=== PATIENT | female | born 1950 | race Hispanic/Latino ===

== ENCOUNTER 2016-12-12 20:26 | Emergency (ER) | payer MEDICARE ==
[2016-12-12] MEDS ORDERED: ONDANSETRON HCL/PF 2 MG/ML VIAL ONE (20:40)
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
--- OUTSIDE RECORDS SUMMARY | 2016-12-12 20:52 | XMS REPORT | Summary of Care ---
:1950 Author Organization [facility] Address [address] [place] [phone] Care Team Providers Name Role Phone Sherry Grant Primary Care Physician Encounter Date(s): 11/18/16 - 11/18/[address] [address] [facility] Discharge Disposition: 01 Discharged to Home or Self Care Attending Physician: DYLAN Negron Referring Physician: DYLAN Negron Vital Signs Most recent to oldest [Reference Range]: 1 Peripheral Pulse Rate [60-100 bpm] 98 bpm (11/18/16 9:27 AM) SpO2 [90-100 %] 96 %1 (11/18/16 9:27 AM) SpO2 Location Left hand (11/18/16 9:27 AM) Blood Pressure [90-130/60-90 mmHg] 108/64mmHg (11/18/16 9:27 AM) Mean Arterial Pressure, Cuff 79 mmHg (11/18/16 9:27 AM) Most recent to oldest [Reference Range]: 1 Height/Length Measured 164 cm (11/18/16 9:27 AM) Weight Dosing 67.4 kg (11/18/16 9:27 AM) Weight Measured 67.4 kg (11/18/16 9:27 AM) BSA Measured 1.74 m2 (11/18/16 9:27 AM) Body Mass Index Measured 25.06 kg/m2 (11/18/16 9:27 AM) 1Result Comment: room air Problem List Condition Effective Dates Status Health Status Informant acute pyelonephritis(Confirmed) Active Anxiety(Confirmed) Active BPPV (benign paroxysmal positional Active vertigo)(Confirmed) 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) Depression(Confirmed) Active Diabetes mellitus(Confirmed) Active DIABETES MELLITUS(Confirmed) Active Dizziness(Confirmed) Active GERD (gastroesophageal reflux Active disease)(Confirmed) Headache(Confirmed) Active Heartburn(Confirmed) Active Hyperlipidemia(Confirmed) Active Hypertension(Confirmed) Active CALCULUS OF KIDNEY(Confirmed) Active Lower back pain(Confirmed) Active Lumbar spondylosis(Confirmed) Active Lumbosacral spondylosis(Confirmed) Active Cervicalgia(Confirmed) Active Subdural hematoma(Confirmed) Active Allergies, Adverse Reactions, Alerts No Known Medication Allergies Medications ALPRAZolam 0.25 mg oral tablet 1 tab(s), Oral, TID, 0 Refill(s), Start Date: 07/18/14 14:11:00 CDT Start Date: 07/18/14 Status: Orderedcephalexin 500 mg oral tablet 1 tab(s), Oral, BID, # 14 tab(s), 0 Refill(s), Start Date: 10/20/15 10:43:00 [employer] SERVICES WORKER , Pharmacy: [place], [place] Start Date: 10/20/15 Stop Date: 11/29/15 Status: CompletedCipro 500 mg oral tablet tab(s), Oral, q12hr interval, 0 Refill(s), Start Date: 07/18/14 15:42:00 CDT Start Date: 07/18/14 Stop Date: 05/23/15 Status: Completedciprofloxacin 500 mg oral tablet 1 tab(s), Oral, q12hr interval, # 28 tab(s), 0 Refill(s), Start Date: 07/18/14 20:24:00 CDT Start Date: 07/18/14 Stop Date: 05/23/15 Status: Completedcitalopram 20 mg oral tablet 1 tab(s), Oral, Daily, 0 Refill(s), Start Date: 07/18/14 14:11:00 CDT Special Instructions: per patient Start Date: 07/18/14 Stop Date: 05/30/16 Status: DiscontinuedDitropan 5 mg oral tablet 1 tab(s), Oral, q12hr, PRN bladder spasm, cramping, severe stent pain, # 30 tab( s), 1 Refill(s), Start Date: 07/18/14 20:25:00 CDT Start Date: 07/18/14 Stop Date: 05/23/15 Status: DiscontinuedFlexeril 5 mg oral tablet 1 tab(s), Oral, BID, PRN as needed for muscle spasm, # 14 tab(s), 0 Refill(s), Start Date: 12/11/15 14:24:00 CDT, Pharmacy: [place], [place] Start Date: 12/11/15 Stop Date: 05/30/16 Status: CompletedglipiZIDE 5 mg oral tablet 1 tab(s), Oral, Daily, # 30 tab(s), 6 Refill(s), Start Date: 06/22/15 11:35:00 CDT, Pharmacy: [place], [place] Start Date: 06/22/15 Stop Date: 03/01/16 Status: CompletedglipiZIDE 5 mg oral tablet 1 tab(s), Oral, Daily, # 90 tab(s), 1 Refill(s), Start Date: 03/01/16 10:26:30 CDT, Pharmacy: [place], [place] Start Date: 03/01/16 Status: OrderedglipiZIDE 5 mg oral tablet tab(s), Oral, Daily, 0 Refill(s), Start Date: 07/18/14 14:10:00 CDT Start Date: 07/18/14 Stop Date: 06/22/15 Status: DiscontinuedGoLYTELY oral powder for reconstitution See Instructions, 240 mL Oral Daily, # 4,000 mL, 0 Refill(s), Start Date: 12:43:00 NUTRITION SERVICES WORKER, Pharmacy: [place], [place] Special Instructions: 240 mL Oral Daily Start Date: 08/26/16 Stop Date: 09/30/16 Status: CompletedHYDROcodone-acetaminophen 5 mg-325 mg oral tablet tab(s), Oral, q6hr interval, 0 Refill(s), Start Date: 07/18/14 15:42:00 CDT Start Date: 07/18/14 Stop Date: 05/23/15 Status: DiscontinuedlamoTRIgine 150 mg oral tablet 1 tab(s), Oral, Daily, # 60 tab(s), 0 Refill(s), Start Date: 01/25/16 9:26:00 CDT Start Date: 01/25/16 Status: OrderedLexapro 20 mg oral tablet 1.5 tab, Oral, Daily, # 30 tab(s), 0 Refill(s), Start Date: 05/30/16 16:16:00 CDT Start Date: 05/30/16 Status: Orderedlisinopril 10 mg oral tablet See Instructions, TAKE ONE TABLET BY MOUTH DAILY, tab(s), 3 Refill(s), # 90, e[facility] : [place], [place] Special Instructions: TAKE ONE TABLET BY MOUTH DAILY Start Date: 08/01/16 Stop Date: 08/12/16 Status: Completedlisinopril 10 mg oral tablet 1 tab(s), Oral, Daily, # 90 tab(s), 1 Refill(s), Start Date: 01/09/16 15:21:00 CDT, Pharmacy: [place], [place] Start Date: 01/09/16 Stop Date: 08/01/16 Status: Completedlisinopril 10 mg oral tablet See Instructions, TAKE ONE TABLET BY MOUTH DAILY, # 90 tab(s), 3 Refill(s), Start Date: 08/12/16 16:25:56 NUTRITION SERVICES WORKER, Pharmacy: [place], [place] Special Instructions: TAKE ONE TABLET BY MOUTH DAILY Start Date: 08/12/16 Status: Orderedlisinopril 10 mg oral tablet tab(s), Oral, Daily, 0 Refill(s), Start Date: 07/18/14 14:10:00 CDT Start Date: 07/18/14 Stop Date: 01/09/16 Status: DiscontinuedmetFORMIN 500 mg oral tablet 1 tab(s), Oral, BID, # 60 tab(s), 6 Refill(s), Start Date: 11/29/15 13:32:00 NUTRITION SERVICES WORKER , Pharmacy: [place], [place] Start Date: 11/29/15 Stop Date: 06/26/16 Status: OrderedmetFORMIN 500 mg oral tablet tab(s), Oral, BID, 0 Refill(s), Start Date: 07/18/14 14:10:00 CDT Start Date: 07/18/14 Stop Date: 11/29/15 Status: DiscontinuedMiraLax oral powder for reconstitution 17 gm=, Oral, Daily, # 527 gm, 0 Refill(s), Start Date: 07/18/14 20:26:00 CDT Start Date: 07/18/14 Stop Date: 12/11/15 Status: Discontinuednitrofurantoin macrocrystals 100 mg oral capsule 1 cap(s), Oral, Daily, # 30 cap(s), 11 Refill(s), Start Date: 07/25/14 10:00:00 NUTRITION SERVICES WORKER, Pharmacy: [facility] Start Date: 07/25/14 Stop Date: 05/23/15 Status: Discontinuedomeprazole 20 mg oral delayed release capsule 1 cap(s), Oral, Daily, # 90 cap(s), 0 Refill(s), Start Date: 10/21/16 9:25:17 NUTRITION SERVICES WORKER, Pharmacy: [place], [place] Start Date: 10/21/16 Status: Orderedomeprazole 20 mg oral delayed release capsule 1 cap(s), Oral, Daily, # 90 cap(s), 0 Refill(s), Start Date: 03/01/16 10:26:55 CDT, Pharmacy: [place], [place] Start Date: 03/01/16 Stop Date: 10/21/16 Status: Completedomeprazole 20 mg oral delayed release capsule 1 cap(s), Oral, Daily, # 90 cap(s), 1 Refill(s), Start Date: 09/12/15 10:29:00 NUTRITION SERVICES WORKER, Pharmacy: [place], [place] Start Date: 09/12/15 Stop Date: 03/01/16 Status: CompletedPercocet 5/325 oral tablet 1 tab(s), Oral, q6hr interval, # 30 tab(s), 0 Refill(s), Start Date: 07/18/14 20 :25:00 CDT Start Date: 07/18/14 Stop Date: 05/23/15 Status: DiscontinuedQUEtiapine 50 mg oral tablet 1 tab(s), Oral, HS, 0 Refill(s), Start Date: 07/18/14 14:11:00 CDT Start Date: 07/18/14 Status: Orderedsimvastatin 10 mg oral tablet 1 tab(s), Oral, HS, # 90 tab(s), 1 Refill(s), Start Date: 02/20/16 9:54:00 CDT, Pharmacy: [place], [place] Start Date: 02/20/16 Stop Date: 08/12/16 Status: Completedsimvastatin 10 mg oral tablet 1 tab(s), Oral, HS, # 90 tab(s), 1 Refill(s), Start Date: 08/12/16 16:25:43 NUTRITION SERVICES WORKER , Pharmacy: [place], [place] Start Date: 08/12/16 Status: Orderedsimvastatin 10 mg oral tablet tab(s), Oral, HS, 0 Refill(s), Start Date: 07/18/14 14:10:00 CDT Start Date: 07/18/14 Stop Date: 02/20/16 Status: DiscontinuedSuprep Bowel Prep Kit oral liquid 1 bottles, Oral, BID, Mix 1 btl to 16oz water and drink. Next morning; repeat use second btl. Complete at least 1 hr before colonscopy., # 1 kit(s), 0 Refill (s), Start Date: 10/25/16 10:10:05 NUTRITION SERVICES WORKER, Pharmacy: [place], [place] Special Instructions: Mix 1 btl to 16oz water and drink. Next morning; repeat use second btl. Complete at least 1 hr before colonscopy. Start Date: 10/25/16 Stop Date: 12/19/16 Status: OrderedSuprep Bowel Prep Kit oral liquid 1 bottles, Oral, BID, Mix 1 btl to 16oz water and drink. Next morning; repeat use second btl. Complete at least 1 hr before colonscopy., # 1 kit(s), 0 Refill (s), Start Date: 10/21/16 13:39:00 NUTRITION SERVICES WORKER, Pharmacy: [place], [place] Special Instructions: Mix 1 btl to 16oz water and drink. Next morning; repeat use second btl. Complete at least 1 hr before colonscopy. Start Date: 10/21/16 Stop Date: 10/25/16 Status: CompletedtiZANidine 2 mg oral tablet 1 tab(s), Oral, HS, # 90 tab(s), 0 Refill(s), Start Date: 01/25/16 9:26:00 CDT Start Date: 01/25/16 Stop Date: 05/30/16 Status: Completed Results No data available for this section Immunizations No data available for this section Procedures Procedure Date Related Diagnosis Body Site Epidural Steroid Injection - Cervical1 04/11/16 Ureteroscopy (Right)2 07/18/14 carpal tunnel release3 Hand Surgery, bilateral tubal ligation 1auto-populated from documented surgical [id number] from documented surgical [id number] hands Social History No data available for this section Assessment and Plan No data available for this section
--- OUTSIDE RECORDS SUMMARY | 2016-12-12 20:52 | XMS REPORT | Summary of Care ---
:1950 Author Organization [facility] Address [address] [place] [address] Care Team Providers Name Role Phone Sherry Grant Primary Care Physician Encounter Date(s): 02/12/16 - 02/12/16 [facility] Aliyah Peace, [address] [place], [place] [address] Discharge Diagnosis: Back pain Discharge Disposition: Discharged to Home or Self Care Attending Physician: DYLAN Martínez Referring Physician: DYLAN Negron Vital Signs Most recent to oldest [Reference Range]: 1 Peripheral Pulse Rate [60-100 bpm] 80 bpm (02/12/16 11:11 AM) Blood Pressure [90-130/60-90 mmHg] 116/70mmHg (02/12/16 11:11 AM) Mean Arterial Pressure, Cuff 85 mmHg (02/12/16 11:11 AM) Most recent to oldest [Reference Range]: 1 Height/Length Measured 139 cm (02/12/16 11:11 AM) Weight Dosing 63.2 kg (02/12/16 11:11 AM) Weight Measured 63.2 kg (02/12/16 11:11 AM) BSA Measured 1.5 m2 (02/12/16 11:11 AM) Body Mass Index Measured 32.71 kg/m2 (02/12/16 11:11 AM) Problem List Condition Effective Dates Status Health Status Informant acute pyelonephritis(Confirmed) Active Anxiety(Confirmed) Active 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) Depression(Confirmed) Active Diabetes mellitus(Confirmed) Active DIABETES MELLITUS(Confirmed) Active Heartburn(Confirmed) Active Hypertension(Confirmed) Active CALCULUS OF KIDNEY(Confirmed) Active Subdural hematoma(Confirmed) Active Allergies, Adverse Reactions, Alerts No Known Medication Allergies Medications ALPRAZolam 0.25 mg oral tablet tab(s), Oral, TID, 0 Refill(s), Start Date: 07/18/14 14:11:00 CDT Start Date: 07/18/14 Status: Orderedcephalexin 500 mg oral tablet 1 tab(s), Oral, BID, # 14 tab(s), 0 Refill(s), Start Date: 10/20/15 10:43:00 RN ER , Pharmacy: [place], [place] Start Date: 10/20/15 Stop Date: 11/29/15 Status: CompletedCipro 500 mg oral tablet tab(s), Oral, q12hr interval, 0 Refill(s), Start Date: 07/18/14 15:42:00 CDT Start Date: 07/18/14 Stop Date: 05/23/15 Status: Completedciprofloxacin 500 mg oral tablet 1 tab(s), Oral, q12hr interval, # 28 tab(s), 0 Refill(s), Start Date: 07/18/14 20:24:00 CDT Start Date: 07/18/14 Stop Date: 05/23/15 Status: Completedcitalopram 20 mg oral tablet tab(s), Oral, Daily, 0 Refill(s), Start Date: 07/18/14 14:11:00 CDT Start Date: 07/18/14 Status: OrderedDitropan 5 mg oral tablet 1 tab(s), Oral, q12hr, PRN bladder spasm, cramping, severe stent pain, # 30 tab( s), 1 Refill(s), Start Date: 07/18/14 20:25:00 CDT Start Date: 07/18/14 Stop Date: 05/23/15 Status: DiscontinuedFlexeril 5 mg oral tablet 1 tab(s), Oral, BID, PRN as needed for muscle spasm, # 14 tab(s), 0 Refill(s), Start Date: 12/11/15 14:24:00 CDT, Pharmacy: [place] Start Date: 12/11/15 Stop Date: 12/18/15 Status: OrderedglipiZIDE 5 mg oral tablet 1 tab(s), Oral, Daily, # 30 tab(s), 6 Refill(s), Start Date: 06/22/15 11:35:00 CDT, Pharmacy: [place] Start Date: 06/22/15 Stop Date: 03/01/16 Status: CompletedglipiZIDE 5 mg oral tablet 1 tab(s), Oral, Daily, # 90 tab(s), 1 Refill(s), Start Date: 03/01/16 10:26:30 CDT, Pharmacy: [place] Start Date: 03/01/16 Status: OrderedglipiZIDE 5 mg oral tablet tab(s), Oral, Daily, 0 Refill(s), Start Date: 07/18/14 14:10:00 CDT Start Date: 07/18/14 Stop Date: 06/22/15 Status: DiscontinuedHYDROcodone-acetaminophen 5 mg-325 mg oral tablet tab(s), Oral, q6hr interval, 0 Refill(s), Start Date: 07/18/14 15:42:00 CDT Start Date: 07/18/14 Stop Date: 05/23/15 Status: DiscontinuedlamoTRIgine 150 mg oral tablet 1 tab(s), Oral, Daily, # 60 tab(s), 0 Refill(s), Start Date: 01/25/16 9:26:00 CDT Start Date: 01/25/16 Status: Orderedlisinopril 10 mg oral tablet 1 tab(s), Oral, Daily, # 90 tab(s), 1 Refill(s), Start Date: 01/09/16 15:21:00 CDT, Pharmacy: [place] Start Date: 01/09/16 Status: Orderedlisinopril 10 mg oral tablet tab(s), Oral, Daily, 0 Refill(s), Start Date: 07/18/14 14:10:00 CDT Start Date: 07/18/14 Stop Date: 01/09/16 Status: DiscontinuedmetFORMIN 500 mg oral tablet 1 tab(s), Oral, BID, # 60 tab(s), 6 Refill(s), Start Date: 11/29/15 13:32:00 RN ER , Pharmacy: [place] Start Date: 11/29/15 Stop Date: 06/26/16 [...] cap(s), 11 Refill(s), Start Date: 07/25/14 10:00:00 RN ER, Pharmacy: [facility] Start Date: 07/25/14 Stop Date: 05/23/15 Status: Discontinuedomeprazole 20 mg oral delayed release capsule 1 cap(s), Oral, Daily, # 90 cap(s), 0 Refill(s), Start Date: 03/01/16 10:26:55 CDT, Pharmacy: [place] Start Date: 03/01/16 Status: Orderedomeprazole 20 mg oral delayed release capsule 1 cap(s), Oral, Daily, # 90 cap(s), 1 Refill(s), Start Date: 09/12/15 10:29:00 RN ER, Pharmacy: [place] Start Date: 09/12/15 Stop Date: 03/01/16 Status: CompletedPercocet 5/325 oral tablet 1 tab(s), Oral, q6hr interval, # 30 tab(s), 0 Refill(s), Start Date: 07/18/14 20 :25:00 CDT Start Date: 07/18/14 Stop Date: 05/23/15 Status: DiscontinuedQUEtiapine 50 mg oral tablet tab(s), Oral, BID, 0 Refill(s), Start Date: 07/18/14 14:11:00 CDT Start Date: 07/18/14 Status: Orderedsimvastatin 10 mg oral tablet 1 tab(s), Oral, HS, # 90 tab(s), 1 Refill(s), Start Date: 02/20/16 9:54:00 CDT, Pharmacy: [facility] [place] Start Date: 02/20/16 Status: Orderedsimvastatin 10 mg oral tablet tab(s), Oral, HS, 0 Refill(s), Start Date: 07/18/14 14:10:00 CDT Start Date: 07/18/14 Stop Date: 02/20/16 Status: DiscontinuedtiZANidine 2 mg oral tablet 1 tab(s), Oral, HS, # 90 tab(s), 0 Refill(s), Start Date: 01/25/16 9:26:00 CDT Start Date: 01/25/16 Status: Ordered Results No data available for this section Immunizations No data available for this section Procedures Procedure Date Related Diagnosis Body Site Ureteroscopy (Right)1 07/18/14 carpal tunnel release2 tubal ligation 1auto-populated from documented surgical [id number] hands Social History No data available for this section Assessment and Plan No data available for this section
--- OUTSIDE RECORDS SUMMARY | 2016-12-12 20:52 | XMS REPORT | Summary of Care ---
:1950 Author Organization [facility] Address [address] [place] [address] Care Team Providers Name Role Phone Sherry Grant Primary Care Physician Encounter Date(s): 10/04/16 - 10/04/[address] [address] Discharge Disposition: 01 Discharged to Home or Self Care Attending Physician: Sixto Chauhan NP Admitting Physician: Sixto Chauhan NP Vital Signs No data available for this section Problem List Condition Effective Dates Status Health Status Informant acute pyelonephritis(Confirmed) Active Anxiety(Confirmed) Active BPPV (benign paroxysmal positional Active vertigo)(Confirmed) 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) Depression(Confirmed) Active Diabetes mellitus(Confirmed) Active DIABETES MELLITUS(Confirmed) Active Dizziness(Confirmed) Active Headache(Confirmed) Active Heartburn(Confirmed) Active Hyperlipidemia(Confirmed) Active Hypertension(Confirmed) [...] tab(s), 0 Refill(s), Start Date: 10/20/15 10:43:00 PHOTOENGRAVING RETOUCHER , Pharmacy: [facility] [place] [place] Start Date: 10/20/15 Stop Date: 11/29/15 [...] Date: 07/18/14 14:11:00 CDT Start Date: 07/18/14 Stop Date: 05/30/16 Status: [...] Refill(s), Start Date: 12/11/15 14:24:00 CDT, Pharmacy: [place], [place] Start Date: 12/11/15 Stop Date: 05/30/16 Status: CompletedglipiZIDE 5 mg oral tablet 1 tab(s), Oral, Daily, # 30 tab(s), 6 Refill(s), Start Date: 06/22/15 11:35:00 CDT, Pharmacy: [facility], [place] Start Date: 06/22/15 Stop Date: 03/01/16 Status: CompletedglipiZIDE 5 mg oral tablet 1 tab(s), Oral, Daily, # 90 tab(s), 1 Refill(s), Start Date: 03/01/16 10:26:30 CDT, Pharmacy: [place], [place] Start Date: 03/01/16 Status: OrderedglipiZIDE 5 mg oral tablet tab(s), Oral, Daily, 0 Refill(s), Start Date: 07/18/14 14:10:00 CDT Start Date: 07/18/14 Stop Date: 06/22/15 Status: DiscontinuedGoLYTELY oral powder for reconstitution See Instructions, 240 mL Oral Daily, # 4,000 mL, 0 Refill(s), Start Date: 12:43:00 PHOTOENGRAVING RETOUCHER, Pharmacy: [place], [place] Start Date: 08/26/16 Stop Date: 09/30/16 Status: [...] tab(s), 3 Refill(s), # 90, eRx : [place], [place] Start Date: 08/01/16 Stop Date: 08/12/16 Status: Completedlisinopril 10 mg oral tablet 1 tab(s), Oral, Daily, # 90 tab(s), 1 Refill(s), Start Date: 01/09/16 15:21:00 CDT, Pharmacy: [place], [place] Start Date: 01/09/16 Stop Date: 08/01/16 Status: Completedlisinopril 10 mg oral tablet See Instructions, TAKE ONE TABLET BY MOUTH DAILY, # 90 tab(s), 3 Refill(s), Start Date: 08/12/16 16:25:56 PHOTOENGRAVING RETOUCHER, Pharmacy: [place] Start Date: 08/12/16 Status: Orderedlisinopril 10 mg oral tablet tab(s), Oral, Daily, 0 Refill(s), Start Date: 07/18/14 14:10:00 CDT Start Date: 07/18/14 Stop Date: 01/09/16 Status: DiscontinuedmetFORMIN 500 mg oral tablet 1 tab(s), Oral, BID, # 60 tab(s), 6 Refill(s), Start Date: 11/29/15 13:32:00 PHOTOENGRAVING RETOUCHER , Pharmacy: [place] Start Date: 11/29/15 Stop Date: 06/26/16 [...] cap(s), 11 Refill(s), Start Date: 07/25/14 10:00:00 PHOTOENGRAVING RETOUCHER, Pharmacy: [facility] Start Date: 07/25/14 Stop Date: 05/23/15 Status: Discontinuedomeprazole 20 mg oral delayed release capsule 1 cap(s), Oral, Daily, # 90 cap(s), 0 Refill(s), Start Date: 03/01/16 10:26:55 CDT, Pharmacy: [place] Start Date: 03/01/16 Status: Orderedomeprazole 20 mg oral delayed release capsule 1 cap(s), Oral, Daily, # 90 cap(s), 1 Refill(s), Start Date: 09/12/15 10:29:00 PHOTOENGRAVING RETOUCHER, Pharmacy: [place] Start Date: 09/12/15 Stop Date: 03/01/16 [...] Refill(s), Start Date: 02/20/16 9:54:00 CDT, Pharmacy: [place] Start Date: 02/20/16 Stop Date: 08/12/16 Status: Completedsimvastatin 10 mg oral tablet 1 tab(s), Oral, HS, # 90 tab(s), 1 Refill(s), Start Date: 08/12/16 16:25:43 PHOTOENGRAVING RETOUCHER , Pharmacy: [place] Start Date: 08/12/16 Status: Orderedsimvastatin 10 [...] bilateral tubal ligation 1auto-populated from documented surgical [id number] from documented surgical [id number] hands Social History No data available for this section Assessment and Plan No data available for this section
--- OUTSIDE RECORDS SUMMARY | 2016-12-12 20:53 | XMS REPORT | Summary of Care ---
:1950 Author Organization [facility] Address [address] [place] [id number] Care Team Providers Name Role Phone Sherry Grant Primary Care Physician Encounter Date(s): 10/21/16 - 10/21/[address] [address] [facility] Discharge Diagnosis: GERD (gastroesophageal reflux disease) Discharge Disposition: 01 Discharged to Home or Self Care Attending Physician: DYLAN Negron Referring Physician: DYLAN Negron Vital Signs Most recent to oldest [Reference Range]: 1 Peripheral Pulse Rate [60-100 bpm] 101 bpm *HI* (10/21/16 9:01 AM) SpO2 98 %1 (10/21/16 9:01 AM) SpO2 Location Left hand (10/21/16 9:01 AM) Blood Pressure [90-130/60-90 mmHg] 104/62mmHg (10/21/16 9:01 AM) Mean Arterial Pressure, Cuff 76 mmHg (10/21/16 9:01 AM) Height/Length Measured 164 cm (10/21/16 9:01 AM) Weight Dosing 64.1 kg (10/21/16 9:01 AM) Weight Measured 64.1 kg (10/21/16 9:01 AM) BSA Measured 1.7 m2 (10/21/16 9:01 AM) Body Mass Index Measured 23.83 kg/m2 (10/21/16 9:01 AM) 1Result Comment: room air Problem List [...] tab(s), 0 Refill(s), Start Date: 10/20/15 10:43:00 DEVELOPMENT EDITOR , Pharmacy: [place], [place] Start Date: 10/20/15 Stop Date: 11/29/15 [...] Refill(s), Start Date: 12/11/15 14:24:00 CDT, Pharmacy: [place] Start Date: 12/11/15 Stop Date: 05/30/16 Status: CompletedglipiZIDE 5 mg oral tablet 1 tab(s), Oral, Daily, # 30 tab(s), 6 Refill(s), Start Date: 06/22/15 11:35:00 CDT, Pharmacy: [place], [place] Start Date: 06/22/15 Stop Date: 03/01/16 Status: CompletedglipiZIDE 5 mg oral tablet 1 tab(s), Oral, Daily, # 90 tab(s), 1 Refill(s), Start Date: 03/01/16 10:26:30 CDT, Pharmacy: [place] Start Date: 03/01/16 Status: OrderedglipiZIDE 5 mg oral tablet tab(s), Oral, Daily, 0 Refill(s), Start Date: 07/18/14 14:10:00 CDT Start Date: 07/18/14 Stop Date: 06/22/15 Status: DiscontinuedGoLYTELY oral powder for reconstitution See Instructions, 240 mL Oral Daily, # 4,000 mL, 0 Refill(s), Start Date: 12:43:00 DEVELOPMENT EDITOR, Pharmacy: [place] Start Date: 08/26/16 Stop Date: 09/30/16 [...] tab(s), 3 Refill(s), # 90, eRx : [place], [place] Start Date: 08/01/16 Stop Date: 08/12/16 Status: Completedlisinopril 10 mg oral tablet 1 tab(s), Oral, Daily, # 90 tab(s), 1 Refill(s), Start Date: 01/09/16 15:21:00 CDT, Pharmacy: [place] Start Date: 01/09/16 Stop Date: 08/01/16 Status: Completedlisinopril 10 mg oral tablet See Instructions, TAKE ONE TABLET BY MOUTH DAILY, # 90 tab(s), 3 Refill(s), Start Date: 08/12/16 16:25:56 DEVELOPMENT EDITOR, Pharmacy: [place] Start Date: 08/12/16 Status: Orderedlisinopril 10 mg oral tablet tab(s), Oral, Daily, 0 Refill(s), Start Date: 07/18/14 14:10:00 CDT Start Date: 07/18/14 Stop Date: 01/09/16 Status: DiscontinuedmetFORMIN 500 mg oral tablet 1 tab(s), Oral, BID, # 60 tab(s), 6 Refill(s), Start Date: 11/29/15 13:32:00 DEVELOPMENT EDITOR , Pharmacy: [place] Start Date: 11/29/15 Stop Date: 06/26/16 [...] cap(s), 11 Refill(s), Start Date: 07/25/14 10:00:00 DEVELOPMENT EDITOR, Pharmacy: [facility] Start Date: 07/25/14 Stop Date: 05/23/15 Status: Discontinuedomeprazole 20 mg oral delayed release capsule 1 cap(s), Oral, Daily, # 90 cap(s), 0 Refill(s), Start Date: 10/21/16 9:25:17 DEVELOPMENT EDITOR, Pharmacy: [place] Start Date: 10/21/16 Status: Orderedomeprazole 20 mg oral delayed release capsule 1 cap(s), Oral, Daily, # 90 cap(s), 0 Refill(s), Start Date: 03/01/16 10:26:55 CDT, Pharmacy: [place] Start Date: 03/01/16 Stop Date: 10/21/16 Status: Completedomeprazole 20 mg oral delayed release capsule 1 cap(s), Oral, Daily, # 90 cap(s), 1 Refill(s), Start Date: 09/12/15 10:29:00 DEVELOPMENT EDITOR, Pharmacy: [place] Start Date: 09/12/15 Stop Date: 03/01/16 [...] Refill(s), Start Date: 02/20/16 9:54:00 CDT, Pharmacy: [place] Start Date: 02/20/16 Stop Date: 08/12/16 Status: Completedsimvastatin 10 mg oral tablet 1 tab(s), Oral, HS, # 90 tab(s), 1 Refill(s), Start Date: 08/12/16 16:25:43 DEVELOPMENT EDITOR , Pharmacy: [place] Start Date: 08/12/16 Status: Orderedsimvastatin 10 [...] 0 Refill (s), Start Date: 10/21/16 13:39:00 DEVELOPMENT EDITOR, Pharmacy: [place] Start Date: 10/21/16 Stop Date: 12/19/16 Status: OrderedtiZANidine 2 mg oral tablet 1 tab(s), Oral, [...] bilateral tubal ligation 1auto-populated from documented surgical [id number] from documented surgical [id number] hands Social History No data available for this section Assessment and Plan No data available for this section
--- OUTSIDE RECORDS SUMMARY | 2016-12-12 20:53 | XMS REPORT | Summary of Care ---
:1950 Author Organization [facility] Address [address] [place], [place] [id number] [place] [address] Care Team Providers Name Role Phone Sherry Grant Primary Care Physician Encounter Date(s): 11/04/16 - 11/04/16 [facility] [address] [id number] Discharge Disposition: 01 Discharged to Home or Self Care Attending Physician: Marlon Franco MD Referring Physician: DYLAN Negron Vital Signs Most recent to oldest [Reference Range]: 1 Peripheral Pulse Rate [60-100 bpm] 82 bpm (11/04/16 11:10 AM) SpO2 100 % (11/04/16 11:10 AM) Blood Pressure [90-130/60-90 mmHg] 145/108mmHg *HI* (11/04/16 11:10 AM) Mean Arterial Pressure, Cuff 120 mmHg (11/04/16 11:10 AM) Most recent to oldest [Reference Range]: 1 Height/Length Measured 164 cm (11/04/16 11:10 AM) Weight Dosing 65.90 kg1 (11/04/16 11:15 AM) Weight Measured 65.9 kg (11/04/16 11:10 AM) BSA Measured 1.72 m2 (11/04/16 11:10 AM) Body Mass Index Measured 24.5 kg/m2 (11/04/16 11:10 AM) 1Result Comment: This result was because the dosing weight was either not entered or it is>30 days old. This result is based off: Weight Measured November 04, 2016 11:10:00 CARDIOLOGY NURSE PRACTITIONER by Estefania Cai RN Problem List Condition Effective Dates Status Health [...] tab(s), 0 Refill(s), Start Date: 10/20/15 10:43:00 [facility] , Pharmacy: [place] Start Date: 10/20/15 Stop Date: 11/29/15 [...] Refill(s), Start Date: 12/11/15 14:24:00 CDT, Pharmacy: [place] Start Date: 12/11/15 Stop Date: 05/30/16 Status: CompletedglipiZIDE 5 mg oral tablet 1 tab(s), Oral, Daily, # 30 tab(s), 6 Refill(s), Start Date: 06/22/15 11:35:00 CDT, Pharmacy: [place] Start Date: 06/22/15 Stop Date: 03/01/16 Status: CompletedglipiZIDE 5 mg oral tablet 1 tab(s), Oral, Daily, # 90 tab(s), 1 Refill(s), Start Date: 03/01/16 10:26:30 CDT, Pharmacy: [place] Start Date: 03/01/16 Status: OrderedglipiZIDE 5 mg oral tablet tab(s), Oral, Daily, 0 Refill(s), Start Date: 07/18/14 14:10:00 CDT Start Date: 07/18/14 Stop Date: 06/22/15 Status: DiscontinuedGoLYTELY oral powder for reconstitution See Instructions, 240 mL Oral Daily, # 4,000 mL, 0 Refill(s), Start Date: 12:43:00 CARDIOLOGY NURSE PRACTITIONER, Pharmacy: [place] Special Instructions: 240 mL Oral Daily [...] tab(s), 3 Refill(s), # 90, eRx : [place] Special Instructions: TAKE ONE TABLET BY MOUTH DAILY Start Date: 08/01/16 Stop Date: 08/12/16 Status: Completedlisinopril 10 mg oral tablet 1 tab(s), Oral, Daily, # 90 tab(s), 1 Refill(s), Start Date: 01/09/16 15:21:00 CDT, Pharmacy: [place] Start Date: 01/09/16 Stop Date: 08/01/16 Status: Completedlisinopril 10 mg oral tablet See Instructions, TAKE ONE TABLET BY MOUTH DAILY, # 90 tab(s), 3 Refill(s), Start Date: 08/12/16 16:25:56 CARDIOLOGY NURSE PRACTITIONER, Pharmacy: [place] Special Instructions: TAKE ONE TABLET BY MOUTH DAILY Start Date: 08/12/16 Status: Orderedlisinopril 10 mg oral tablet tab(s), Oral, Daily, 0 Refill(s), Start Date: 07/18/14 14:10:00 CDT Start Date: 07/18/14 Stop Date: 01/09/16 Status: DiscontinuedmetFORMIN 500 mg oral tablet 1 tab(s), Oral, BID, # 60 tab(s), 6 Refill(s), Start Date: 11/29/15 13:32:00 CARDIOLOGY NURSE PRACTITIONER , Pharmacy: [place] Start Date: 11/29/15 Stop Date: 06/26/16 [...] cap(s), 11 Refill(s), Start Date: 07/25/14 10:00:00 CARDIOLOGY NURSE PRACTITIONER, Pharmacy: [facility] Start Date: 07/25/14 Stop Date: 05/23/15 Status: Discontinuedomeprazole 20 mg oral delayed release capsule 1 cap(s), Oral, Daily, # 90 cap(s), 0 Refill(s), Start Date: 10/21/16 9:25:17 CARDIOLOGY NURSE PRACTITIONER, Pharmacy: [place] Start Date: 10/21/16 Status: Orderedomeprazole 20 mg oral delayed release capsule 1 cap(s), Oral, Daily, # 90 cap(s), 0 Refill(s), Start Date: 03/01/16 10:26:55 CDT, Pharmacy: [place] Start Date: 03/01/16 Stop Date: 10/21/16 Status: Completedomeprazole 20 mg oral delayed release capsule 1 cap(s), Oral, Daily, # 90 cap(s), 1 Refill(s), Start Date: 09/12/15 10:29:00 CARDIOLOGY NURSE PRACTITIONER, Pharmacy: [place] Start Date: 09/12/15 Stop Date: 03/01/16 [...] Refill(s), Start Date: 02/20/16 9:54:00 CDT, Pharmacy: [place] Start Date: 02/20/16 Stop Date: 08/12/16 Status: Completedsimvastatin 10 mg oral tablet 1 tab(s), Oral, HS, # 90 tab(s), 1 Refill(s), Start Date: 08/12/16 16:25:43 CARDIOLOGY NURSE PRACTITIONER , Pharmacy: [place] Start Date: 08/12/16 Status: Orderedsimvastatin 10 [...] 0 Refill (s), Start Date: 10/25/16 10:10:05 CARDIOLOGY NURSE PRACTITIONER, Pharmacy: [place] Special Instructions: Mix 1 btl to [...] 0 Refill (s), Start Date: 10/21/16 13:39:00 CARDIOLOGY NURSE PRACTITIONER, Pharmacy: [place] Special Instructions: Mix 1 btl to [...] bilateral tubal ligation 1auto-populated from documented surgical [id number] from documented surgical [id number] hands Social History No data available for this section Assessment and Plan No data available for this section
--- OUTSIDE RECORDS SUMMARY | 2016-12-12 20:53 | XMS REPORT | Summary of Care ---
:1950 Author Organization [facility] Address [address] [place] [id number] Care Team Providers Name Role Phone Sherry Grant Primary Care Physician Encounter Date(s): 03/01/16 - 03/01/[address] [address] [facility] Discharge Diagnosis: Heartburn Discharge Diagnosis: Gastro-esophageal reflux disease without esophagitis Discharge Diagnosis: Hyperlipemia Discharge Diagnosis: Hypertension Discharge Disposition: 01 Discharged to Home or Self Care Attending Physician: DYLAN Purdy Referring Physician: DYLAN Negron Vital Signs Most recent to oldest [Reference Range]: 1 Temperature Oral [35.8-37.3 DegC] 36.3 DegC (03/01/16 9:56 AM) Peripheral Pulse Rate [60-100 bpm] 89 bpm (03/01/16 9:56 AM) SpO2 98 % (03/01/16 9:56 AM) Blood Pressure [90-130/60-90 mmHg] 128/82mmHg (03/01/16 9:56 AM) Mean Arterial Pressure, Cuff 97 mmHg (03/01/16 9:56 AM) Most recent to oldest [Reference Range]: 1 Height/Length Measured 153 cm (03/01/16 9:56 AM) Height/Length Estimated 153 cm (03/01/16 9:56 AM) Weight Dosing 61.9 kg (03/01/16 9:56 AM) Weight Measured 61.9 kg (03/01/16 9:56 AM) BSA Measured 1.59 m2 (03/01/16 9:56 AM) Body Mass Index Measured 26.44 kg/m2 (03/01/16 9:56 AM) Problem List Condition Effective Dates Status [...] tab(s), 0 Refill(s), Start Date: 10/20/15 10:43:00 [employer] , Pharmacy: [place], [place] Start Date: 10/20/15 Stop Date: 11/29/15 [...] Refill(s), Start Date: 12/11/15 14:24:00 CDT, Pharmacy: [place] Start Date: 12/11/15 Stop Date: 12/18/15 Status: OrderedglipiZIDE 5 mg oral tablet 1 tab(s), Oral, Daily, # 30 tab(s), 6 Refill(s), Start Date: 06/22/15 11:35:00 CDT, Pharmacy: [place], [place] Start Date: 06/22/15 Stop Date: 03/01/16 Status: CompletedglipiZIDE 5 mg oral tablet 1 tab(s), Oral, Daily, # 90 tab(s), 1 Refill(s), Start Date: 03/01/16 10:26:30 CDT, Pharmacy: [place] Start Date: 03/01/16 Status: OrderedglipiZIDE 5 [...] Refill(s), Start Date: 01/09/16 15:21:00 CDT, Pharmacy: [place] Start Date: 01/09/16 Status: Orderedlisinopril 10 mg oral tablet tab(s), Oral, Daily, 0 Refill(s), Start Date: 07/18/14 14:10:00 CDT Start Date: 07/18/14 Stop Date: 01/09/16 Status: DiscontinuedmetFORMIN 500 mg oral tablet 1 tab(s), Oral, BID, # 60 tab(s), 6 Refill(s), Start Date: 11/29/15 13:32:00 [employer] , Pharmacy: [place], [place] Start Date: 11/29/15 Stop Date: 06/26/16 [...] cap(s), 11 Refill(s), Start Date: 07/25/14 10:00:00 [employer], Pharmacy: [id number] Start Date: 07/25/14 Stop Date: 05/23/15 Status: Discontinuedomeprazole 20 mg oral delayed release capsule 1 cap(s), Oral, Daily, # 90 cap(s), 0 Refill(s), Start Date: 03/01/16 10:26:55 CDT, Pharmacy: [place], [place] Start Date: 03/01/16 Status: Orderedomeprazole 20 mg oral delayed release capsule 1 cap(s), Oral, Daily, # 90 cap(s), 1 Refill(s), Start Date: 09/12/15 10:29:00 [employer], Pharmacy: [place] Start Date: 09/12/15 Stop Date: 03/01/16 [...] Refill(s), Start Date: 02/20/16 9:54:00 CDT, Pharmacy: [place] Start Date: 02/20/16 Status: Orderedsimvastatin 10 mg oral tablet tab(s), Oral, HS, 0 Refill(s), Start Date: 07/18/14 14:10:00 CDT Start Date: 07/18/14 Stop Date: 02/20/16 Status: DiscontinuedtiZANidine 2 mg oral tablet 1 tab(s), Oral, HS, # 90 tab(s), 0 Refill(s), Start Date: 01/25/16 9:26:00 CDT Start Date: 01/25/16 Status: Ordered Results Patient Viewable Results Most recent to oldest [Reference Range]: 1 Sodium Lvl [136-145 mmol/L] 139 mmol/L (03/01/16 10:31 AM) Potassium Lvl [3.5-5.1 mmol/L] 4.5 mmol/L (03/01/16 10:31 AM) Chloride Lvl [98-107 mmol/L] 103 mmol/L (03/01/16 10:31 AM) Bicarbonate Lvl [21-32 mmol/L] 28 mmol/L (03/01/16 10:31 AM) Anion Gap [12-19] 12 (03/01/16 10:31 AM) Glucose Lvl [74-106 mg/dL] 167 mg/dL *HI* (03/01/16 10:31 AM) BUN [7-18 mg/dL] 12 mg/dL (03/01/16 10:31 AM) Creatinine Lvl [0.55-1.02 mg/dL] 1.06 mg/dL *HI* (03/01/16 10:31 AM) BUN/Creat Ratio 11 *NA* (03/01/16 10:31 AM) eGFR AA [>=60] >60 (03/01/16 10:31 AM) eGFR NAYAN [>=60] 52 *LOW* (03/01/16 AM) Calcium Lvl [8.5-10.1 mg/dL] 8.9 mg/dL (03/01/16 AM) Total Protein [6.4-8.2 g/dL] 7.2 g/dL (03/01/16 AM) Albumin Lvl [3.4-5.0 g/dL] 4.0 g/dL (03/01/16 AM) Globulin 3 g/dL *NA* (03/01/16 AM) A/G Ratio [1.0-2.0] 1.2 (03/01/16 AM) Bilirubin Total [0.2-1.0 mg/dL] 0.3 mg/dL (03/01/16 AM) Alkaline Phosphatase [46-116 unit/L] 81 unit/L (03/01/16 AM) AST [15-37 unit/L] 16 unit/L (03/01/16 AM) ALT [14-59 unit/L] 25 unit/L (03/01/16 AM) Glycated Hemoglobin [4.5-6.2 %] 7.0 % *HI* (03/01/16 AM) Estimated Average Glucose [64-120 mg/dL] 147 mg/dL *HI* (03/01/16: AM) UA Color Yellow *NA* (03/01/16 AM) Urine Clarity Clear *NA* (03/01/16 AM) Specific [place] [1.001-1.020] 1.015 (03/01/16 AM) Urine pH [5.0-7.0] 5.5 (03/01/16 AM) Ketones [Negative] Negative (03/01/16 AM) Bilirubin [Negative] Negative (03/01/16 AM) Urine Protein [Negative] Negative (03/01/16 AM) Glucose [Negative] Negative (03/01/16: AM) Urine HGB [Negative] Negative (03/01/16 AM) Urobilinogen [0.2-1.0] 0.2 (03/01/16 10:31 AM) Nitrite [Negative] Negative (03/01/16 10:31 AM) Leuk Esterase [Negative] Trace *ABN* (03/01/16 10:31 AM) Urine WBC [Negative] 0-2 *ABN* (03/01/16 10:31 AM) Urine RBC [Negative] Negative (03/01/16 10:31 AM) Squamous Epi [Negative] Negative (03/01/16 10:31 AM) Immunizations No data available for this section Procedures Procedure Date Related Diagnosis Body Site Ureteroscopy (Right)1 07/18/14 carpal tunnel release2 tubal ligation 1auto-populated from documented surgical [id number] hands Social History No data available for this section Assessment and Plan No data available for this section
--- OUTSIDE RECORDS SUMMARY | 2016-12-12 20:53 | XMS REPORT | Summary of Care ---
:1950 Author Organization [facility] Address [address] [place] [address] Care Team Providers Name Role Phone Sherry Grant Primary Care Physician Encounter Date(s): 02/12/16 - 02/12/16 [facility] [address]yah [address], [address] [place], [place] [address] Discharge Diagnosis: Back pain Discharge Disposition: 01 Discharged to Home or [...] tab(s), 0 Refill(s), Start Date: 10/20/15 10:43:00 INDIAN [employer]ANNY , Pharmacy: [place], [place] Start Date: 10/20/15 Stop Date: 11/29/15 [...] Refill(s), Start Date: 12/11/15 14:24:00 CDT, Pharmacy: [place], [place] Start Date: 12/11/15 Stop Date: 12/18/15 Status: OrderedglipiZIDE 5 mg oral tablet 1 tab(s), Oral, Daily, # 30 tab(s), 6 Refill(s), Start Date: 06/22/15 11:35:00 CDT, Pharmacy: [place], [place] Start Date: 06/22/15 Stop Date: 03/01/16 Status: CompletedglipiZIDE 5 mg oral tablet 1 tab(s), Oral, Daily, # 90 tab(s), 1 Refill(s), Start Date: 03/01/16 10:26:30 CDT, Pharmacy: [place] Start Date: 03/01/16 Status: OrderedglipiZIDE 5 [...] Refill(s), Start Date: 01/09/16 15:21:00 CDT, Pharmacy: [place], [place] Start Date: 01/09/16 Status: Orderedlisinopril 10 mg oral tablet tab(s), Oral, Daily, 0 Refill(s), Start Date: 07/18/14 14:10:00 CDT Start Date: 07/18/14 Stop Date: 01/09/16 Status: DiscontinuedmetFORMIN 500 mg oral tablet 1 tab(s), Oral, BID, # 60 tab(s), 6 Refill(s), Start Date: 11/29/15 13:32:00 INDIAN NANNY , Pharmacy: [place], [place] Start Date: 11/29/15 Stop Date: 06/26/16 [...] cap(s), 11 Refill(s), Start Date: 07/25/14 10:00:00 INDIAN NANNY, Pharmacy: [facility] Start Date: 07/25/14 Stop Date: 05/23/15 Status: Discontinuedomeprazole 20 mg oral delayed release capsule 1 cap(s), Oral, Daily, # 90 cap(s), 0 Refill(s), Start Date: 03/01/16 10:26:55 CDT, Pharmacy: [place], [place] Start Date: 03/01/16 Status: Orderedomeprazole 20 mg oral delayed release capsule 1 cap(s), Oral, Daily, # 90 cap(s), 1 Refill(s), Start Date: 09/12/15 10:29:00 INDIAN NANNY, Pharmacy: [place] Start Date: 09/12/15 Stop Date: 03/01/16 [...] Start Date: 02/20/16 9:54:00 CDT, Pharmacy: [facility] [place] Start Date: 02/20/16 Status: Orderedsimvastatin 10 [...] release2 tubal ligation 1auto-populated from documented surgical [id number] hands Social History No data available for this section Assessment and Plan No data available for this section
[2016-12-12] MEDS ORDERED: ONDANSETRON HCL/PF 2 MG/ML VIAL IV ONE (20:59)
[2016-12-12 21:29] LABS: Urine Bilirubin Negative (NEGATIVE); Urine Blood Negative /ul (NEGATIVE); Urine Ketone 15 mg/dL (NEGATIVE); Urine Nitrite Negative (NEGATIVE); Urine Protein Negative (NEGATIVE); Urine Specific Gravity 1.025 SP.GR. (1.005-1.010); Urine Urobilinogen Normal (NORMAL)
[2016-12-12 21:31] LABS: Urine Appearance Clear; Urine Color Pale Yellow
[2016-12-12 21:32] LABS: Urine Bacteria None Seen; Urine RBC 0-5 /hpf (0-5); Urine WBC 0-5 /hpf (0-5)
[2016-12-12 21:44] LABS: Hematocrit 32.4 % (37.0-47.0); Hemoglobin 10.9 gm/dL (12.5-16.0); Mean Cell Volume 93.6 fl (78-100); Mean Corpuscular Hemoglobin 31.5 pg (27-31); Mean Corpuscular Hgb Conc 33.6 g/dl (32-36); Mean Platelet Volume 8.5 fl (6.0-9.5); Neutrophil # 8.2 K/mm3 (1.3-6.0); Neutrophil % 86.4 % (42-75.0); Platelet Count 236 K/mm3 (150-450); Red Blood Count 3.46 M/mm3 (4.2-5.4); Red Cell Distribution Width 12.5 % (11.5-14.0); White Blood Count 9.5 K/mm3 (4.0-10.5)
[2016-12-12 21:58] LABS: Albumin * 3.8 gm/dl (3.4-5.0); Anion Gap 14.9 mmol/L (6.8-13.8); BUN/Creatinine Ratio 13.8 (9.0-21.6); Bilirubin, Total 0.4 mg/dL (0.0-1.1); Ca. Corrected For Albumin 8.5 mg/dL (8.4-10.2); Calcium * 8.7 mg/dL (7.9-10.9); Carbon Dioxide 24.9 mmol/L (24-32.6); Potassium 3.8 mmol/L (3.4-4.6); Total Protein 6.9 gm/dL (6.2-8.2)
[2016-12-12 22:02] LABS: Cocaine Ur Negative (NEGATIVE); Urine Barbiturate Negative (NEGATIVE); Urine Benzodiazepines Negative (NEGATIVE); Urine Opiates Negative (NEGATIVE); Urine PCP Negative (NEGATIVE); Urine THC Negative (NEGATIVE)
[2016-12-12] MEDS ORDERED: MORPHINE SULFATE 2 MG/ML DISP.SYRIN ONE (22:11)
[2016-12-12] MEDS ORDERED: MORPHINE SULFATE 2 MG/ML DISP.SYRIN IV ONE (22:13)
[2016-12-12 22:50] VITALS: BP 144/83
== END 2016-12-12 22:18 | disposition short-term general hospital (02) ==
LOC: ER 20:26
DX: S06.5X0A Traumatic subdural hemorrhage without loss of consciousness, initial encounter (principal); W10.9XXA Fall (on) (from) unspecified stairs and steps, initial encounter